=== PATIENT | male | born 1965 | race African-American/Black ===

== ENCOUNTER 2018-05-10 12:08 | Emergency (ER) | payer OTHER ==
[~2018-05-10] VITALS: Ht 177.8 cm; Wt 100.0 kg
[2018-05-10] MEDS ORDERED: ACETAMINOPHEN 325MG TABLET PO ONE (14:30)
[2018-05-10] MEDS ORDERED: IBUPROFEN 600MG TABLET PO ONE (14:30)
[2018-05-10 14:50] VITALS: BP 133/68
== END 2018-05-10 18:39 | disposition home or self-care (01) ==
LOC: ER 12:08
DX: S70.02XA Contusion of left hip, initial encounter (principal); S80.02XA Contusion of left knee, initial encounter; V03.00XA Pedestrian on foot injured in collision with car, pick-up truck or van in nontraffic accident, initial encounter; Y93.01 Activity, walking, marching and hiking; Y92.481 Parking lot as the place of occurrence of the external cause
CPT/HCPCS: 73522; 73562; 99283